=== PATIENT | female | born 1970 | race African-American/Black ===

== ENCOUNTER 2016-12-25 12:14 | Emergency (ER) | payer MEDICAID ==
[~2016-12-25] VITALS: Ht 162.6 cm; Wt 63.0 kg
[2016-12-25 12:19] VITALS: BP 184/98; PULSE 87; RESP 15; TEMP 98.2; O2SAT 98
--- NOTE | 2016-12-25 12:28 | PD ---
Physical Exam Date Seen by Provider: Dec 25, 2016 Time Seen by Provider: 12:25 Narrative 46 y/o blind female presents with laceration from can of the left index finger. Pain reported at 5/10. Bleeding controlled with dressing. Tetanus UTD. V/S stable Patient awaiting bed placement. Data Data Last Documented VS Vital Signs Date Time Temp Pulse Resp B/P Pulse Ox O2 Delivery O2 Flow Rate FiO2 12/25/16 12:19 98.2 87 15 184/98 98 MDM Medical Record Reviewed: Yes Supervised Visit with FLOR: Yes Condition: Stable Stephen Schuler Dec 25, 2016 12:27
[2016-12-25] MEDS ORDERED: TETANUS/DIPHTHERIA TOXOID ADULT 0.5 ML VIAL IM ONE (14:00)
--- NOTE | 2016-12-25 14:08 | PD ---
HPI . left index finger cut Chief Complaint: Laceration/Skin Injury Time Seen by Provider: 13:48 Travel History International Travel<30 days: No Contact w/Intl Traveler<30days: No Traveled to known affect area: No History of Present Illness HPI 46-year-old female with history of diabetes, hypertension, hyperlipidemia and congenital blindness here with complaints of the left index finger laceration. Patient was trying to open a can with Dr. artemio menon when she accidentally cut her finger on the lid of the can. She is here requesting repair. She admits to pain at the site of the laceration. Unfortunately this is an avulsion and the entire tip of the finger is missing. There is no visible bone, tendon or nerve. The fat pad was cut off. She does not usually receive tetanus vaccines and tells me she only gets the flu vaccine. She has consented to tetanus today. She is accompanied by a career guidance counselor from the [facility]. She has no other issues. PFSH Past Medical History Cardiovascular Problems: Yes (htn) Diabetes: Yes Patient Takes Glucophage: Yes (metformin bid took this am) Medical other: Yes (blind) Tetanus Vaccination: Unknown Influenza Vaccination: Yes ?: Not Past Surgical History Hysterectomy: Yes Social History Alcohol Use: No Tobacco Use: No Substance Use: No Allergies-Medications (Allergen,Severity, Reaction): Coded Allergies: No Known Allergies (Unverified , 12/25/16) Reported Meds & Prescriptions Reported Meds & Active Scripts Active Ibuprofen 800 Mg Tab 800 Mg PO TID Keflex (Cephalexin) 500 Mg Cap 500 Mg PO Q6H 10 Days Review of Systems General / Constitutional: No: Fever Eyes: No: Visual changes HENT: No: Headaches Cardiovascular: No: Chest Pain or Discomfort Respiratory: No: Shortness of Breath Gastrointestinal: No: Abdominal Pain Genitourinary: No: Dysuria Musculoskeletal: No: Pain Skin: Positive Other (finger laceration ), No Rash Neurologic: No: Weakness Psychiatric: No: Depression Endocrine: No: Polydipsia Hematologic/Lymphatic: No: Easy Bruising Physical Exam Narrative GENERAL: AAO x 3, no acute distress, Well-nourished, well-developed patient. SKIN: Warm and dry. No visible rashes or bruising. Left index finger with avulsion of distal tip. There is no skin to suture. Cap refill is normal. No visible bone of tendon. HEAD: Normocephalic and atraumatic. EYES: No scleral icterus. No injection or drainage. ENT: No nasal drainage noted. Mucous membranes pink. Airway patent. NECK: Supple, trachea midline. No JVD. CARDIOVASCULAR: Regular rate and rhythm without murmurs, gallops, or rubs. RESPIRATORY: Breath sounds equal bilaterally. No accessory muscle use. No rhonchi or rales. GASTROINTESTINAL: Visual inspection normal EXTREMITIES: No cyanosis or edema. BACK: Nontender without obvious deformity. No CVA tenderness. PSYCH: AAO x 3, normal affect. Data Data Last Documented VS Vital Signs Date Time Temp Pulse Resp B/P Pulse Ox O2 Delivery O2 Flow Rate FiO2 12/25/16 13:22 16 12/25/16 12:19 98.2 87 184/98 98 Orders Finger ([id number]) (12/25/16 13:51) Tetanus/Diphtheria Tox Adult (Tetanus/Di (12/25/16 14:00) Wound Care (12/25/16 14:19) MDM Medical Decision Making Medical Screen Exam Complete: Yes Emergency Medical Condition: Yes Medical Record Reviewed: Yes Differential Diagnosis finger avulsion, less likely repairable laceration, less likely fracture Narrative Course 46-year-old female with history of diabetes, hypertension, hyperlipidemia and congenital blindness here with complaints of the left index finger laceration. Patient was trying to open a can with Dr. artemio menon when she accidentally cut her finger on the lid of the can. She is here requesting repair. She admits to pain at the site of the laceration. Unfortunately this is an avulsion and the entire tip of the finger is missing. There is no visible bone, tendon or nerve. The fat pad was cut off. She does not usually receive tetanus vaccines and tells me she only gets the flu vaccine. She has consented to tetanus today. She is accompanied by a career guidance counselor from the [facility]. She has no other issues. Patient seen and examined. There is nothing to suture. Case discussed with Dr. Perez, who also assessed the patient and was in agreement. Area was cleaned and dressing was applied. Recommend Keflex. Ibuprofen for pain. Discussed signs of infection and when to return to ed. F/U with PCP within 1 week. All instructions were discussed with Yue staff from [facility]. She agreed and tells me someone will be with the patient to assist with dressing changes and to look out for infection. Patient verbalized understanding of instructions, questions were answered, and thanked me for their care. I advised them if their condition worsens, please return to the nearest emergency room for further care. Diagnosis Primary Impression: Avulsion, finger tip Qualified Code: S61.209A - Avulsion, finger tip, initial encounter Patient Instructions: Acute Wound Care (ED), General Instructions Departure Forms: Tests/Procedures Additional Instructions: Please return to emergency department if your symptoms return or worsen. Follow up with your primary care provider. Take medications as prescribed. Please follow-up with your primary care provider this week. [place] for worsening signs of infection which include increased redness, increased warmth, purulent drainage, increased swelling or streaking. If any of these develop, please return to the nearest emergency department. Scripts Ibuprofen 800 Mg [id number] Mg PO TID #21 TAB Prov:Naveen Perez MD 12/25/16 Cephalexin (Keflex)500 Mg [id number] Mg PO Q6H 10 Days Ref 0 Prov:Naveen Perez MD 12/25/16 Disposition: 01 DISCHARGE HOME Condition: Stable Kat Mayo Dec 25, 2016 14:08 Kat Mayo Dec 25, 2016 14:08
[2016-12-25] MEDS ORDERED: IBUP800T23 PO (14:20)
[2016-12-25] MEDS ORDERED: CEPH-460 PO (14:20)
--- NOTE | 2016-12-25 14:54 | RADRPT ---
EXAM DATE/TIME: 12/25/2016 14:09 [place] COMPARISON: No previous studies available for comparison. INDICATIONS : Cut left 2nd finger on top of can. laceration on the anterior distal phalanx MEDICAL HISTORY : None. SURGICAL HISTORY : None. ENCOUNTER: Initial ACUITY: 1 day PAIN SCORE: 0/10 LOCATION: Left 2nd finger FINDINGS: 3 views left hand. Bone alignment within normal limits. No evidence of fracture. No radiopaque forei gn body identified. Soft tissue defect at the volar aspect of the second digit distally. CONCLUSION: No evidence of fracture. Robb Mueller MD on December 25, 2016 at 14:49 Board Certified Radiologist. This report was verified electronically.
--- NOTE | 2016-12-29 07:41 | PD ---
Data Data Last Documented VS Vital Signs Date Time Temp Pulse Resp B/P Pulse Ox O2 Delivery O2 Flow Rate FiO2 12/25/16 13:22 16 12/25/16 12:19 98.2 87 184/98 98 Orders Finger ([id number]) (12/25/16 13:51) Tetanus/Diphtheria Tox Adult (Tetanus/Di (12/25/16 14:00) Wound Care (12/25/16 14:19) MDM Supervised Visit with FLOR: Yes Narrative Course I, Dr. Perez, have reviewed the advance practice practitioner's documentation and am in agreement, met with the patient face to face, made the diagnosis, and the medical decision making was done by me. *My assessment and Findings: Patient is a fingertip avulsion, no bone exposed, fat pad is significantly levels but there is no skin overlying left close, no indication for rongeur at this time as the fingertip is still viable. Unfortunately the patient will have to heal by secondary intention. This is discussed with her. There is nursing care available at the facility she is at who can monitor for infection. She is stable for discharge. Diagnosis Primary Impression: Avulsion, finger tip Qualified Code: S61.209A - Avulsion, finger tip, initial encounter Patient Instructions: General Instructions, Acute Wound Care (ED) Departure Forms: Tests/Procedures Additional Instruction: Please return to emergency department if your symptoms return or worsen. Follow up with your primary care provider. Take medications as prescribed. Please follow-up with your primary care provider this week. [place] for worsening signs of infection which include increased redness, increased warmth, purulent drainage, increased swelling or streaking. If any of these develop, please return to the nearest emergency department. Scripts Ibuprofen 800 Mg [id number] Mg PO TID #21 TAB Prov:Naveen Perez MD 12/25/16 Cephalexin (Keflex)500 Mg [id number] Mg PO Q6H 10 Days Ref 0 Prov:Naveen Perez MD 12/25/16 Disposition: 01 DISCHARGE HOME Condition: Stable Naveen Perez MD December 29, 2016 07:41
== END 2016-12-25 14:53 | disposition home or self-care (01) ==
LOC: NEPK 12:14
DX: S61.201A Unspecified open wound of left index finger without damage to nail, initial encounter (principal); W26.8XXA Contact with other sharp object(s), not elsewhere classified, initial encounter; Z23 Encounter for immunization
CPT/HCPCS: 73140; 90471; 90714